=== PATIENT | male | born 1940 ===

== ENCOUNTER 2020-07-02 08:28 | Outpatient (CLI) | payer OTHER, SELFPAY ==
--- NOTE | ~2020-07-02 | US_ITS ---
EXAMINATION: US aorta [facility] scrn DATE: 07/02/2020 09:30 CDT INDICATION: Diabetes. History of smoking. Screening for abdominal aortic aneurysm. TECHNIQUE: Grayscale, color Doppler, and pulsed Doppler images of the aorta and common iliac arteries were obtained. COMPARISON: None. FINDINGS: The proximal aorta measures 2 cm greatest sagittal dimension. The mid aorta measures 2 cm greatest sa gittal dimension. The distal aorta measures 1.4 cm greatest sagittal dimension. The right common inte rnal iliac artery measures 1 cm. The left common iliac artery measures 1 cm. IMPRESSION: 1. Normal caliber aorta without aneurysm. Reviewed, dictated and finalized at location B.
== END 2020-07-02 08:29 | disposition home or self-care (01) ==
DX: Z13.6 Encounter for screening for cardiovascular disorders (principal)
CPT/HCPCS: 76706